=== PATIENT | male | born 1995 | race Caucasian/White ===

== ENCOUNTER 2019-11-15 14:50 | Inpatient (IN) | payer OTHER ==
[~2019-11-15] VITALS: Ht 175.3 cm; Wt 128.9 kg
[2019-11-15] MEDS ORDERED: ADVIL (14:59)
[2019-11-15] MEDS ORDERED: CLINDAMYCIN 900 MG in IV 1 EA IV ONE (15:15)
[2019-11-15] MEDS ORDERED: dexameTHASONE 20MG/5ML VIAL (J1100 PER 1MG) IV ONE (15:15)
[2019-11-15] MEDS ORDERED: KETOROLAC 30 MG/ML VIAL (J1885) IV ONE (16:30)
[2019-11-15] MEDS ORDERED: NS 1,000 ML IV ONE (16:30)
[2019-11-15] MEDS ORDERED: IBUP-1720 PO (17:18)
[2019-11-15] MEDS: NS 1,000 ML IV SCH (17:53)
[2019-11-15 18:00] VITALS: BP 155/94
[2019-11-15 21:00] VITALS: O2SAT 97
[2019-11-15] MEDS: CLINDAMYCIN 600 MG in IV 1 EA IV SCH (21:32)
[2019-11-15] MEDS: dexameTHASONE 4 MG/ML 1ML VIAL (J1100) IV SCH (21:32)
[2019-11-15 22:00] VITALS: BP 152/93
[2019-11-16] MEDS: NS 1,000 ML IV SCH (03:52)
[2019-11-16] MEDS: dexameTHASONE 4 MG/ML 1ML VIAL (J1100) IV SCH ×3 (03:52→15:32)
[2019-11-16] MEDS: CLINDAMYCIN 600 MG in IV 1 EA IV SCH ×3 (03:52→15:32)
[2019-11-16] MEDS: ACETAMINOPHEN 325 MG/10.15 ML UDC PO SCH ×2 (05:15→09:23)
[2019-11-16 06:00] VITALS: BP 145/91
--- NOTE | 2019-11-16 13:08 | IPNPDOC ---
Text Note Date of Service The patient was seen on 11/16/19. NOTE Cooper was admitted yesterday with 5 days of progressive throat pain and dysphagia. CT done elsewhere showed an intratonsillar "abscess" The parapharyngeal/peritonsillar space was clear He has been on 18 hours of steroids and abx. Afebrile Much less of a hot potato voice No trismus Pharnx shows uvula midline, Right tonsil hypertrophic but not abscessed. Airway patent No fluctuance of soft palate Neck supple and without nodes Imp Resolving red hot tonsillits without a surgical emergency. Plan finish 24 hour IV therapy then discharge home on oral meds Cleociin and Prednisone Follow up in 48 hours VS,Andriy, I+O VS, Nestore, I+O Vital Signs Date Time Temp Pulse Resp B/P (MAP) Pulse Ox O2 Delivery O2 Flow Rate FiO2 11/16/19 06:00 96.7 93 18 145/91 (109) 98 Room Air I&O- Last 24 Hours up to 6 AM 11/16/19 06:00 Intake Total 2420 ml Output Total 800 ml Balance 1620 ml TRINITY DESIR MD Nov 16, 2019 13:08
[2019-11-16 13:18] VITALS: BP 157/80
[2019-11-16] MEDS ORDERED: ACET160L16 PO (15:14)
--- NOTE | 2019-11-17 13:36 | HPE ---
DATE OF ADMISSION: 11/15/2019 ADMITTING DIAGNOSIS: Acute tonsillitis and pharyngitis. INDICATIONS: This is a 24-year-old who has had previous issues with acute tonsillitis who presents with marked swelling of his right tonsil causing dysphagia and odynophagia. He was seen in [facility] ([facility]) and thought to have a peritonsillar abscess and was sent here for definitive treatment. He was admitted through the emergency room now with a five to seven day history of progressive sore throat worse on the right side. PAST MEDICAL HISTORY: No significant medical problems. He does have a history of sleep apnea for which he uses CPAP. PHYSICAL EXAMINATION: He is afebrile. He is slightly diaphoretic. The nasal airway is clear. He has mild trismus, but the oropharynx is examined. The right tonsil is markedly hypertrophic and hyperplastic associated with a thick exudate on its medial surface. The left tonsil also shows an exudate on its surface. The soft palate was not fluctuant or expanding. The uvula was midline. Palpation of the neck revealed no cervical adenopathy. Chest was clear. Heart without murmur. Review of the CT scan showed what appears to be intra tonsil soft tissue fluid, but no evidence of a peripharyngeal space or peritonsillar abscess. IMPRESSION AND PLAN: He has acute tonsillitis with pending of part of the tonsil. This is very different than a peritonsillar abscess, but he will be admitted to the hospital for IV antibiotics and steroids to settle this down. Because of his history of sleep apnea, it is felt that he was at some risk for desaturation with the expansion of the tonsil in his throat so he is admitted for observation.
== END 2019-11-16 17:55 | disposition home or self-care (01) | DRG 156 ==
LOC: M ED 14:50 → M ED INP 16:47 → ENRESERVDT 17:08 → ENRESERVTM 17:08 → M MS5PR 18:27
PROVIDERS: ADMIT Specialist; ATTEND Specialist
DX: J35.1 Hypertrophy of tonsils (principal)